=== PATIENT | female | born 1965 | race American Indian/Alaskan Native ===

== ENCOUNTER 2021-10-09 10:17 | Emergency (ER) | payer BC ==
[2021-10-09] MEDS ORDERED: PANTOPRAZOLE 40 MG INJ IV ONE (11:03)
[2021-10-09] MEDS ORDERED: SODIUM CHLORIDE 0.9% 1000 ML 1,000 ML IV ONE (11:03)
[2021-10-09 12:13] LABS: INR 0.97 (0.87-1.13)
[2021-10-09 12:22] LABS: Alanine Aminotransferase 20 units/L (7-56); Albumin 4.3 g/dL (3.9-5); Blood Urea Nitrogen 7 mg/dL (7-17); Calcium 9.3 mg/dL (8.4-10.2); Hemolysis Index 5
[2021-10-09 12:27] LABS: BUN/Creatinine Ratio 10
--- NOTE | 2021-10-09 13:38 | Cat Scan Report ---
CT ABDOMEN AND PELVIS WITHOUT INTRAVENOUS CONTRAST INDICATION / CLINICAL INFORMATION: Abdominal pain and bleeding. TECHNIQUE: All CT scans at this location are performed using CT dose reduction for ALARA by means of automated exposure control. COMPARISON: None available. FINDINGS: ABDOMEN: The liver, spleen, gallbladder, bile ducts, pancreas, adrenal glands and kidneys demonstrate no significant abnormality. There is a moderate amount of stool in the colon. I see no evidence of b owel obstruction, wall thickening or free air. No adenopathy is present. No acute vascular abnormalit y is seen. The lung bases are unremarkable. PELVIS: There are multiple scattered colonic diverticula without acute inflammation. A normal appendi x is present. The distal ureters and urinary bladder are normal. I do not identify a hernia. The uterus is enlarged and lobulated and contains multiple fibroids, several of which contain interna l calcifications. There is a 7.9 cm mass in the left adnexa which is predominantly fatty and also con tains solid and minimally calcified components. No abnormality is seen in the right adnexa. No free f luid is present. No acute osseous abnormality is seen. IMPRESSION: 1. Diverticulosis without CT evidence of acute diverticulitis. 2. 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 Enlarged uterus containing multiple fibroids. OCCUPATIONAL PHYSICIAN consultation is rec ommended. Signer Name: Antoine Gonzales MD Signed: 10/09/2021 1:34 PM Workstation Name: [email or web address] [id number]
[2021-10-09 13:39] LABS: Basophils % (Auto) 0.5 % (0.0-1.8); Eosinophils # (Auto) 0.1 K/mm3 (0.0-0.4); Eosinophils % (Auto) 1.9 % (0.0-4.3); Hematocrit 35.9 % (30.3-42.9); Hemoglobin 11.6 gm/dl (10.1-14.3); Lymphocytes # (Auto) 1.9 K/mm3 (1.2-5.4); Lymphocytes % (Auto) 32.2 % (13.4-35.0); Mean Corpuscular HGB Conc 32 % (30-34); Mean Corpuscular Volume 92 fl (79-97); Monocytes # (Auto) 0.4 K/mm3 (0.0-0.8); Monocytes % (Auto) 7.6 % (0.0-7.3); Platelet Count 266 K/mm3 (140-440); Red Blood Count 3.88 M/mm3 (3.65-5.03); Red Cell Distribution Width 13.8 % (13.2-15.2)
--- NOTE | 2021-10-09 13:52 | Emergency Department Report ---
ED Abdominal Pain HPI - General Chief Complaint: GI Bleed Stated Complaint: INTERNAL BLEEDING Time Seen by Provider: 10/09/21 11:03 Source: patient Mode of arrival: Ambulatory Limitations: No Limitations - History of Present Illness Initial Comments: pt presents to ed with complaint of dark tarry stools x 1 week pt has diverticulosis noticed some blood in stools dark but not black, no pain -: Gradual, days(s) Location: diffuse Consistency: intermittent Improves With: nothing Worsens With: nothing - Related Data Previous Rx's Medication Instructions Recorded Last Taken Type Amoxicillin/Potassium Clav 1 each PO BID #14 10/09/21 Unknown Rx [Augmentin 875-125 Tablet] Omeprazole 20 mg PO DAILY #14 10/09/21 Unknown Rx Allergies Allergy/AdvReac Type Severity Reaction Status Date / Time Penicillins Allergy Unknown Verified 10/09/21 10:25 ED Review of Systems ROS: Stated complaint: INTERNAL BLEEDING Other details as noted in HPI Constitutional: denies: chills, fever Eyes: denies: eye pain, eye discharge, vision change ENT: denies: ear pain, throat pain Respiratory: denies: cough, shortness of breath, wheezing Cardiovascular: denies: chest pain, palpitations Endocrine: no symptoms reported Gastrointestinal: denies: abdominal pain, nausea, diarrhea Genitourinary: denies: urgency, dysuria, discharge Musculoskeletal: denies: back pain, joint swelling, arthralgia Skin: denies: rash, lesions Neurological: denies: headache, weakness, paresthesias Psychiatric: denies: anxiety, depression Hematological/Lymphatic: denies: easy bleeding, easy bruising ED Past Medical Hx - Past Medical History Previous Medical History?: Yes Hx Hypertension: Yes Hx Diabetes: Yes - Surgical History Past Surgical History?: No - Social History Smoking Status: Never Smoker Substance Use Type: None - Medications Home Medications: Home Medications Medication Instructions Recorded Confirmed Last Taken Type Amoxicillin/Potassium Clav 1 each PO BID #14 10/09/21 Unknown Rx [Augmentin 875-125 Tablet] Omeprazole 20 mg PO DAILY #14 10/09/21 Unknown Rx ED Physical Exam - General Limitations: No Limitations General appearance: alert, in no apparent distress - Head Head exam: Present: atraumatic, normocephalic - Eye Eye exam: Present: normal appearance - ENT ENT exam: Present: mucous membranes moist - Neck Neck exam: Present: normal inspection - Respiratory Respiratory exam: Present: normal lung sounds bilaterally. Absent: respiratory distress - Cardiovascular Cardiovascular Exam: Present: regular rate, normal rhythm. Absent: systolic murmur, diastolic murmur, rubs, gallop - GI/Abdominal GI/Abdominal exam: Present: soft, normal bowel sounds - Rectal Rectal exam: Present: heme (+) stool, other (no active bleeding , trace blood on exam ) - Extremities Exam Extremities exam: Present: normal inspection - Back Exam Back exam: Present: normal inspection - Neurological Exam Neurological exam: Present: alert, oriented X3 - Psychiatric Psychiatric exam: Present: normal affect, normal mood - Skin Skin exam: Present: warm, dry, intact, normal color. Absent: rash ED Course Vital Signs 10/09/21 10/09/21 10/09/21 10:24 11:14 11:25 Temperature 98.0 F Pulse Rate 80 80 Respiratory 18 18 12 Rate Blood Pressure 164/95 O2 Sat by Pulse 99 98 Oximetry 10/09/21 10/09/21 10/09/21 11:31 11:45 12:01 Temperature Pulse Rate 83 82 86 Respiratory 11 L 9 L 12 Rate Blood Pressure 181/96 181/96 O2 Sat by Pulse 99 99 100 Oximetry 10/09/21 10/09/21 10/09/21 12:15 12:31 12:45 Temperature Pulse Rate 83 80 78 Respiratory 16 12 12 Rate Blood Pressure 181/96 181/96 181/96 O2 Sat by Pulse 99 98 98 Oximetry 10/09/21 13:01 Temperature Pulse Rate 85 Respiratory 11 L Rate Blood Pressure 181/96 O2 Sat by Pulse 100 Oximetry ED Medical Decision Making - Lab Data Result diagrams: 10/09/21 13:02 10/09/21 11:38 - Medical Decision Making work up shwoed stable H.H , stable VSS, ct scan shwoed diverticulosis, will refer to GI for lower GI Critical care attestation.: If time is entered above; I have spent that time in minutes in the direct care of this critically ill patient, excluding procedure time. ED Disposition Clinical Impression: Diverticulosis, Hematochezia Disposition: HOME / SELF CARE / HOMELESS Is pt being admited?: No Does the pt Need Aspirin: No Condition: Stable Instructions: Gastrointestinal Bleeding, Diverticulosis Prescriptions: Amoxicillin/Potassium Clav [Augmentin 875-125 Tablet] 1 each PO BID #14 Omeprazole 20 mg PO DAILY #14 Referrals: PRIMARY CARE, [Primary Care Provider] - 3-5 Days NOLVIA SAAB MD [Staff Physician] - 3-5 Days
[2021-10-09 14:04] VITALS: BP 177/87
== END 2021-10-09 14:04 | disposition home or self-care (01) ==
LOC: ED 10:17
DX: K57.92 Diverticulitis of intestine, part unspecified, without perforation or abscess without bleeding (principal); K92.1 Melena
CPT/HCPCS: 36415; 74176; 80053; 82270; 83690; 85025; 85610; 86850; 86900; 86901; 96361; 96374; 99284; C9113; J7030; Q0162